=== PATIENT | female | born 1970 | race Caucasian/White ===

== ENCOUNTER 2019-06-13 12:56 | Emergency (ER) | payer OTHER ==
--- NOTE | 2019-06-13 14:11 | ER ---
Nurse's Notes [facility] Name: Michelle Dillon Age: 48 yrs Sex: Female : 1970 Arrival Date: 06/13/2019 Time: 12:58 Bed Treatment Private MD: Diagnosis: Toxic effect of contact with other venomous marine animals, accidental (unintentional) Presentation: 06/13 13:20 Presenting complaint: Patient states: Pt reports that about an hour ago she accidently ss touched a Man o' war jelly fish with her L fifth finger. Transition of care: patient was not received from another setting of care. Onset of symptoms was June 13, 2019. Risk Assessment: Do you want to hurt yourself or someone else? Patient reports no desire to harm self or others. Initial Sepsis Screen: Does the patient meet any 2 criteria? No. Patient's initial sepsis screen is negative. Does the patient have a suspected source of infection? No. Patient's initial sepsis screen is negative. Care prior to arrival: None. 13:20 Method Of Arrival: Ambulatory ss 13:20 Acuity: NARENDRA 5 ss Historical: - Allergies: 13:23 Sulfa (Sulfonamide Antibiotics); ss 13:23 PENICILLINS; ss - Immunization history:: Adult Immunizations unknown. - Social history:: Smoking status: Patient/guardian denies using tobacco. - Ebola Screening: : Patient denies exposure to infectious person Patient denies travel to an Ebola-affected area in the 21 days before illness onset. Screenin:24 Abuse screen: Denies threats or abuse. Denies injuries from another. Nutritional ss screening: No deficits noted. Tuberculosis screening: Never had TB. Fall Risk None identified. Assessment: 13:24 General: Appears in no apparent distress. comfortable. General: Pt reports she became ss anxious soon after she had an exposure with a jelly fish, but then began to feel better.. Neuro: Level of Consciousness is awake, alert, obeys commands, Oriented to person, place, time, situation. Cardiovascular: Capillary refill < 3 seconds is brisk in bilateral fingers Patient's skin is warm and dry. Respiratory: Airway is patent Respiratory effort is even, unlabored, Respiratory pattern is regular, symmetrical. GI: Patient currently denies diarrhea, nausea, vomiting. EENT: Oral mucosa is moist. Derm: Skin is intact, is healthy with good turgor, Skin is dry, Skin is pink, warm \T\ dry. normal. Musculoskeletal: Circulation, motion, and sensation intact. Range of motion: intact in all extremities, Swelling absent. 14:19 Reassessment: Patient appears in no apparent distress at this time. Patient and/or ss family updated on plan of care and expected duration. Pain level reassessed. Patient is alert, oriented x 3, equal unlabored respirations, skin warm/dry/pink. Patient denies pain at this time. Patient states feeling better. Patient states symptoms have improved. Vital Signs: 13:23 BP 108 / 76; Pulse 71; Resp 16; Temp 97.7(TE); Pulse Ox 100% on R/A; Weight 63.5 kg; ss Height 5 ft. 11 in. (180.34 cm); 13:23 Body Mass Index 19.53 (63.50 kg, 180.34 cm) ED Course: 12:58 Patient arrived in ED. as 13:00 Elisabet Mendoza FNP-C [facility] snw 13:00 Mark Ordonez MD is Attending Physician. [facility] 13:23 Triage completed. ss 13:23 Arm band placed on right wrist. ss 13:24 Patient has correct armband on for positive identification. Bed in low position. Call ss light in reach. 14:18 Angeline Navarrete, ANTHONY is Primary Nurse. 14:18 No provider procedures requiring assistance completed. Patient did not have IV access ss during this emergency room visit. Administered Medications: No medications were administered Outcome: 14:10 Discharge ordered by . sn 14:18 Discharged to home ambulatory, with family. ss 14:18 Condition: good 14:18 Discharge instructions given to patient, family, Instructed on discharge instructions, follow up and referral plans. wound care, Demonstrated understanding of instructions, follow-up care. 14:19 Patient left the ED. Signatures: Elisabet Mendoza FNP-C INTERRELATED SPECIAL EDUCATION TEACHER-[place] Christelle Stevens as Angeline Navarrete, ANTHONY RN ss
--- NOTE | 2019-06-13 14:11 | EDPHYS ---
Physician Documentation [facility] Name: Michelle Dillon Age: 48 yrs Sex: Female : 1970 Arrival Date: 06/13/2019 Time: 12:58 Bed Treatment Private MD: ED Physician Mark Ordonez HPI: 06/13 15:25 This 48 yrs old Female presents to ER via Ambulatory with complaints of snw Jellyfish Sting. 15:25 Onset: The symptoms/episode began/occurred suddenly, just prior to arrival. Associated snw signs and symptoms: Pertinent positives: stinging/burning sensation to bilateral hands and up left arm. The patient has not experienced similar symptoms in the past. It is unknown whether or not the patient has recently seen a physician. pt states she washed area with soap and water and then coated area with lavender. Area without erythema or blistering at this time. Pt became nervous when she googled [place] man-o-war injury and came to ED to "be checked". Historical: - Allergies: 13:23 Sulfa (Sulfonamide Antibiotics); ss 13:23 PENICILLINS; ss - Immunization history:: Adult Immunizations unknown. - Social history:: Smoking status: Patient/guardian denies using tobacco. - Ebola Screening: : Patient denies exposure to infectious person Patient denies travel to an Ebola-affected area in the 21 days before illness onset. ROS: 15:25 Constitutional: Negative for fever, chills, and weight loss, Eyes: Negative for injury, snw pain, redness, and discharge, ENT: Negative for injury, pain, and discharge, Neck: Negative for injury, pain, and swelling, Cardiovascular: Negative for chest pain, palpitations, and edema, Respiratory: Negative for shortness of breath, cough, wheezing, and pleuritic chest pain, Abdomen/GI: Negative for abdominal pain, nausea, vomiting, diarrhea, and constipation, Back: Negative for injury and pain, : Negative for injury, bleeding, discharge, and swelling, MS/Extremity: Negative for injury and deformity, Neuro: Negative for headache, weakness, numbness, tingling, and seizure, Psych: Negative for depression, anxiety, suicide ideation, homicidal ideation, and hallucinations. 15:25 Skin: Positive for burning sensation to hands and up left arm s/p touching a man-o-war. Exam: 15:24 Constitutional: This is a well developed, well nourished patient who is awake, alert, snw and in no acute distress. Head/Face: Normocephalic, atraumatic. Eyes: Pupils equal round and reactive to light, extra-ocular motions intact. Lids and lashes normal. Conjunctiva and sclera are non-icteric and not injected. Cornea within normal limits. Periorbital areas with no swelling, redness, or edema. ENT: Nares patent. No nasal discharge, no septal abnormalities noted. Tympanic membranes are normal and external auditory canals are clear. Oropharynx with no redness, swelling, or masses, exudates, or evidence of obstruction, uvula midline. Mucous membranes moist. Neck: Trachea midline, no thyromegaly or masses palpated, and no cervical lymphadenopathy. Supple, full range of motion without nuchal rigidity, or vertebral point tenderness. No Meningismus. Chest/axilla: Normal chest wall appearance and motion. Nontender with no deformity. No lesions are appreciated. Cardiovascular: Regular rate and rhythm with a normal S1 and S2. No gallops, murmurs, or rubs. Normal PMI, no JVD. No pulse deficits. Respiratory: Lungs have equal breath sounds bilaterally, clear to auscultation and percussion. No rales, rhonchi or wheezes noted. No increased work of breathing, no retractions or nasal flaring. Abdomen/GI: Soft, non-tender, with normal bowel sounds. No distension or tympany. No guarding or rebound. No evidence of tenderness throughout. Back: No spinal tenderness. No costovertebral tenderness. Full range of motion. Skin: Warm, dry with normal turgor. Normal color with no rashes, no lesions, and no evidence of cellulitis. MS/ Extremity: Pulses equal, no cyanosis. Neurovascular intact. Full, normal range of motion. Neuro: Awake and alert, GCS 15, oriented to person, place, time, and situation. Cranial nerves II-XII grossly intact. Motor strength 5/5 in all extremities. Sensory grossly intact. Cerebellar exam normal. Normal gait. Psych: Awake, alert, with orientation to person, place and time. Behavior, mood, and affect are within normal limits. Vital Signs: 13:23 BP 108 / 76; Pulse 71; Resp 16; Temp 97.7(TE); Pulse Ox 100% on R/A; Weight 63.5 kg; ss Height 5 ft. 11 in. (180.34 cm); 13:23 Body Mass Index 19.53 (63.50 kg, 180.34 cm) ss MDM: 13:32 Patient medically screened. [facility] 15:28 Data reviewed: vital signs, nurses notes. Data interpreted: Pulse oximetry: on room air snw is 100 %. Interpretation: normal. Counseling: I had a detailed discussion with the patient and/or guardian regarding: the historical points, exam findings, and any diagnostic results supporting the discharge/admit diagnosis, the need for outpatient follow up, for definitive care, to return to the emergency department if symptoms worsen or persist or if there are any questions or concerns that arise at home. Special discussion: Based on the history and exam findings, there is no indication for further emergent testing or inpatient evaluation. I discussed with the patient/guardian the need to see the primary care provider for further evaluation of the symptoms. Administered Medications: No medications were administered Disposition: 06/13/19 14:10 Discharged to Home. Impression: Toxic effect of contact with other venomous marine animals, accidental (unintentional). - Condition is Stable. - Discharge Instructions: Marine Life Injury, Contact Dermatitis. - Medication Reconciliation Form, Thank You Letter, Antibiotic Education, Prescription Opioid Use form. - Follow up: Private Physician; When: 2 - 3 days; Reason: Recheck today's complaints, Continuance of care, Re-evaluation by your physician. Follow up: Emergency Department; When: As needed; Reason: Worsening of condition. Addendum: 06/21/2019 11:03 Co-signature as Attending Physician, Mark Ordonez MD I agree with the assessment and c escobar plan of care. Signatures: Mark Ordonez MD MD cha Therrien, Shelly, SINGLE SPINDLE SCREW MACHINE OPERATOR-C SINGLE SPINDLE SCREW MACHINE OPERATOR-[place] Angeline Navarrete RN RN ss Corrections: (The following items were deleted from the chart) 06/13 14:19 14:10 06/13/2019 14:10 Discharged to Home. Impression: Toxic effect of contact with ss other venomous marine animals, accidental (unintentional). Condition is Stable. Forms are Medication Reconciliation Form, Thank You Letter, Antibiotic Education, Prescription Opioid Use. Follow up: Private Physician; When: 2 - 3 days; Reason: Recheck today's complaints, Continuance of care, Re-evaluation by your physician. Follow up: Emergency Department; When: As needed; Reason: Worsening of condition. [place]
[2019-06-13 14:22] VITALS: BP 108/76; TEMP 97.7; O2SAT 100
== END 2019-06-13 14:19 | disposition home or self-care (01) ==
LOC: ER 12:56
DX: S60.571A Other superficial bite of hand of right hand, initial encounter (principal); Y93.9 Activity, unspecified; T63.621A Toxic effect of contact with other jellyfish, accidental (unintentional), initial encounter; Y92.832 Beach as the place of occurrence of the external cause; Z88.0 Allergy status to penicillin; Z88.2 Allergy status to sulfonamides
CPT/HCPCS: 99281